=== PATIENT | male | born 1975 | race Two or more races ===

== ENCOUNTER 2025-03-23 00:54 | Emergency (ER) | payer OTHER, SELFPAY ==
[2025-03-23 00:56] VITALS: BP 132/91
[2025-03-23 01:13] VITALS: BP 120/90
[2025-03-23 01:15] VITALS: BMI 32.6
--- NOTE | 2025-03-23 01:28 | ED.GENMED ---
History of Present Illness
General
Chief Complaint: Fatigue
Source: patient
Time Seen by Provider: 03/23/25 01:05
History of Present Illness
History of Present Illness:
49-year-old male presents to the emergency room complaining of having a sensation of fatigue, feeling he might pass out. Patient has had a couple episodes such as this. He had 1 episode a year ago at which point he noted he had a more rapid heart
rate in the 110's. That resolved without any clear reason. Patient began feeling similar symptoms few days ago but was feeling better yesterday. Symptoms returned this evening. Patient has a sensation of lightheadedness even if he is laying
flat. Changing positions does not change the symptomatology. No shortness of breath. No fever or chills. Patient does not take any prescription medications.
Past History
Past History
ED Past Medical History: None
ED Past Surgical History: None
Social History
Tobacco: Non-smoker
Alcohol: Occasional
Drug: None
Personal:
Living: with family
Employment: Employed
Family History
Family History: Negative Early CAD or Sudden
Phy Exam
Physical Exam
Physical Exam:
General: Awake, Alert, Oriented X3. No acute distress.
Vitals: unremarkable
Head: Atraumatic
Eyes: Pupils equal, EOMI
Throat: Airway intact, no exudates
Neck: Trachea midline
Lungs: Clear and equal b/l
Heart: Regular rate, no murmurs
Abd: Soft, Nontender, No pulsatile mass
Neuro: Nonfocal
Skin: Warm, dry, no rash
Extremities: pulses equal b/l, no edema
Course
Orders/Labs/Results
Orders:
Orders
03/23/25 00:58
ECG [Electrocardiogram (*1)] Urgent
Reason for Study: Fatigue / Weakness
EKG- Treatment ONCE
03/23/25 01:27
Cardiac Monitoring- Treatment ONCE
0.9% Sodium Chloride 1000 ml [Nss] 1,000 ml IV BOLUS
03/23/25 01:47
Complete Blood Count/With Diff Urgent
Comprehensive Metabolic Panel Urgent
Troponin I Urgent
Abnormal Lab Results
03/23/25
01:47
MCH 31.6 H pg
(27.0-31.0)
Absolute Lymphs (auto) 3.6 H 10^3/uL
(1.2-3.4)
Neutrophils % 33.2 L %
(42.2-75.2)
Lymphocytes % 53.1 H %
(20.5-51.1)
Chloride 110 H mmol/L
(98-107)
BUN 8 L mg/dl
(9-20)
Glucose 181 H mg/dl
(70-99)
Total Protein 6.2 L g/dl
(6.3-8.2)
03/23/25 01:47
03/23/25 01:47
Vital Signs
Initial and Last Documented VS:
Initial Vital Signs
Temp Pulse Resp BP Pulse Ox
98.5 F 84 18 132/91 97
03/23/25 00:56 03/23/25 00:56 03/23/25 00:56 03/23/25 00:56 03/23/25 00:56
Last Documented Vital Signs
Temp Pulse Resp BP Pulse Ox
98.5 F 59 17 114/85 99
03/23/25 00:56 03/23/25 02:49 03/23/25 02:49 03/23/25 02:00 03/23/25 02:49
MDM/Problems Addressed
Differential Diagnosis Includes:
Dehydration, dysrhythmia, ACS
MDM/Problems Addressed:
Patient presents with fatigue perception of his heart rate being fast. Patient had a couple episodes of fast 2 days. No vertigo. Workup here was unremarkable. EKG shows no acute ischemic changes. Troponin is normal. Patient stable for
discharge to follow-up with his primary care provider
*Pulse Oximetry
SaO2: 97
Oxygen Mode of Delivery: Room air
Patient hypoxic: no
*EKG
Interpreted by ED Provider?: Yes
Interpretation: normal
Heart Rate: 70
Rate: normal
Rhythm: sinus
Alvarado: normal axis
Interval: normal interval
QRS Pattern: normal QRS
Ischemia: no ischemia
*Statement Clerks Manager Interpretation
Rate: normal
Interpretation: normal
Heart Rate: 70
Rhythm: sinus
*Critical Care Note
Total Time (30-74mins, 75-104mins- exclusive of procedures): Not Applicable
ED Attending Note
-
Portions of this chart may have been created with voice recognition software.� Occasional wrong word or��sound alike� substitutions may have occurred due to the inherent limitations of voice recognition software.
Discharge Plan
Departure
Patient Disposition: Home (Routine Discharge)
Date of Disposition: 03/23/25
Time of Disposition: 02:52
Patient with high blood pressure during this ER visit?: No
Condition: Good
Discharge Problem:
Heart palpitations, Fatigue
Instructions: Fatigue (DC), Heart Palpitations
Prescriptions:
No Action
No Current Medications
0
Referrals:
UNKNOWN - PT DOES,NOT KNOW [Family Provider]
Interventions
Interventions:
*Risk Screen - Suicide Last Done: 03/23/25 00:56
*General Assessment Last Done: 03/23/25 01:15
*Neglect/Abuse Screening Last Done: 03/23/25 00:56
*ED- Fall Risk Assessment Last Done: 03/23/25 01:15
*ED COVID-19 Vaccine History Last Done: 03/23/25 01:15
*Nursing Disposition Last Done: 03/23/25 03:05
Discharge Date and Time
Discharge Date/Time: 03/23/25 03:05
Print Language: FIJIAN
[2025-03-23] MEDS: NSS 1000 IV (01:51)
[2025-03-23 02:00] VITALS: BP 114/85
[2025-03-23 02:17] LABS: Hematocrit 47.0 % (39.0-52.0); Hemoglobin 16.6 g/dL (13.0-18.0); Mean Corp Hgb Conc. 35.3 g/dL (33.0-37.0); Mean Corpuscular Volume 89.5 fL (80.0-94.0); Platelet Count 237 10^3/uL (130-400); Red Cell Dist. Width 13.0 % (11.5-14.5)
[2025-03-23 02:26] LABS: ALT (SGPT) 26 U/L (0-50); AST (SGOT) 24 U/L (17-59); Albumin 3.5 g/dl (3.5-5.0); Alkaline Phosphatase 79 U/L (38-126); Blood Urea Nitrogen 8 mg/dl (9-20); Calcium 8.8 mg/dl (8.4-10.2); Carbon Dioxide 24 mmol/L (22-30); Chloride 110 mmol/L (98-107); Estimated Creatinine Clearance > 125 ml/min; Glucose 181 mg/dl (70-99); Potassium 4.1 mmol/L (3.5-5.1); Sodium 139 mmol/L (135-145); Total Protein 6.2 g/dl (6.3-8.2); eGFR > 60.00
[2025-03-23 02:38] LABS: Troponin I < 0.012 ng/ml
[2025-03-23 03:56] LABS: Nucleated Red Blood Cells % 0 % (-)
== END 2025-03-23 03:05 | disposition home or self-care (01) ==
LOC: EMR 00:54
PROVIDERS: EMERGENCY PHYSICIAN Emergency Medicine
DX: R00.2 Palpitations (principal); R42 Dizziness and giddiness; R53.83 Other fatigue; Z88.0 Allergy status to penicillin
CPT/HCPCS: 99284; 96360; 80053; 84484; 85025; 93005

== ENCOUNTER → 2025-03-24 09:05 | Outpatient (REF) | payer OTHER, SELFPAY ==
[2025-03-24 13:37] LABS: Magnesium 1.7 mg/dl (1.6-2.3)
[2025-03-24 13:51] LABS: Vitamin D, 25-OH*** 14.0 ng/mL (30-80)
[2025-03-24 14:05] LABS: PSA, Total - Diagnostic 4.48 ng/ml (0.0-4.0)
[2025-03-24 14:08] LABS: Glycohemoglobin (HgbA1c) 5.7 % (4.0-5.6)
[2025-03-24 14:41] LABS: Folate 13.4 ng/ml (2.76-20); Vitamin B12 < 159 pg/ml (239-931)
== END ==
LOC: HWLAB 09:05
PROVIDERS: ATTENDING PHYSICIAN Specialist; FAMILY PHYSICIAN Nurse Practitioner Adult Health
DX: R97.20 Elevated prostate specific antigen [PSA] (principal); R00.0 Tachycardia, unspecified; R42 Dizziness and giddiness; R55 Syncope and collapse; R73.01 Impaired fasting glucose; R53.83 Other fatigue
CPT/HCPCS: 36415; 82306; 82607; 82746; 83036; 83735; 84153; 84443

== ENCOUNTER → 2025-03-31 08:16 | Outpatient (REF) | payer OTHER, SELFPAY | LOC: RCS 08:16 | PROVIDERS: ATTENDING PHYSICIAN Nurse Practitioner Adult Health | DX: R00.0 Tachycardia, unspecified (principal); R42 Dizziness and giddiness; R55 Syncope and collapse; R73.01 Impaired fasting glucose | CPT/HCPCS: 93225; 93226 ==

== ENCOUNTER → 2025-04-18 07:35 | Outpatient (REF) | payer OTHER, SELFPAY | LOC: RCS 07:35 | DX: R00.2 Palpitations (principal) | CPT/HCPCS: 93017 ==

== ENCOUNTER → 2025-04-25 13:25 | Outpatient (REF) | payer OTHER, SELFPAY | LOC: HWRCS 13:25 | PROVIDERS: ATTENDING PHYSICIAN Internal Medicine Cardiovascular Disease; FAMILY PHYSICIAN Nurse Practitioner Adult Health | DX: R00.2 Palpitations (principal) | CPT/HCPCS: 93306 ==